=== PATIENT | male | born 1950 | race Caucasian/White ===

== ENCOUNTER → 2018-06-16 | Outpatient (CLI) | payer OTHER ==
[~2018-06-16] VITALS: Ht 180.3 cm; Wt 88.5 kg
[~2018-06-16] MED LIST: LIPITOR 20 MG T20 M1 PO; MOVE FREE JOIN1 EACH PO; TOPROL XL25 MG PO; TUMS PO
--- NOTE | 2018-06-18 12:10 | PATH ---
[facility] [address] [place] [address] PATHOLOGY RPT PROCEDURE Name: JERRY WETZEL Room #: REG JENNIFER Hurtado.#: [id number] ������������������ Admission: 06/16/18 ������������������ Date of : 46 Discharge: Report #: [id number] Path Case #: [id number] [facility] Accession Number: [id number] . 01 Material submitted: . PART A: ASCENDING COLON POLYP PART B: SPLENIC FLEXURE POLYP . 01 Clinical history: . History of adenomatous colon polyp Colon polyps, diverticulosis . 02 Diagnosis: A. Polyp, ascending colon polyp, endoscopic biopsy: - Tubular adenoma. - Negative for high grade dysplasia. . B. Polyp, splenic flexure polyp, endoscopic biopsy: - Tubular adenoma. - Negative for high grade dysplasia. . (IUV:mml; 06/17/2018) QLM/06/17/2018 . 02 Electronically signed: . Cris Granda MD, Pathologist NPI- [id number] . 01 Gross description: . A. The specimen is received in formalin, labeled "Jerry Wetzel, ascending colon polyp" and consists of 2 fragments of barrios-brown tissue measuring 0.3 x 0.1 cm and 0.5 x 0.3 x 0.2 cm. The larger fragment is inked and bisected. They are entirely submitted in A1. . B. The specimen is received in formalin, labeled "Jerry Wetzel, splenic flexure polyp" and consists of 2 fragments of barrios-brown tissue measuring 0.4 x 0.3 x 0.1 cm and 0.7 x 0.7 x 0.1 cm. They are entirely submitted in B1. (SDY; 06/16/2018) SYU/SYU . 02 Pathologist provided ICD-10: D12.2, D12.3 . 02 CPT . 502772, 090294 Specimen Comment: A courtesy [place] of [place] [address] PATHOLOGY RPT PROCEDURE Name: JERRY WETZEL Room #: REG [facility]#: [id number] ������������������ Admission: 06/16/18 ������������������ Date of : 46 Discharge: Report #: [id number] Path Case #: [id number] Specimen Comment: [phone], . Specimen Comment: Report sent to / DR LORENZO Specimen Comment: A duplicate report has been generated due to demographic updates. Performed at: [address] [facility], [place], [place] [id number] MD Ildefonso Laws MD Phone: [phone] Performed at: [address] [id number] MD Cris Granda MD Phone: [phone]
== END | disposition home or self-care (01) ==
LOC: GI 07:35
DX: Z12.11 Encounter for screening for malignant neoplasm of colon (principal); D12.2 Benign neoplasm of ascending colon; D12.3 Benign neoplasm of transverse colon; K57.30 Diverticulosis of large intestine without perforation or abscess without bleeding; K64.8 Other hemorrhoids; I10 Essential (primary) hypertension; E78.00 Pure hypercholesterolemia, unspecified; G47.30 Sleep apnea, unspecified; K21.9 Gastro-esophageal reflux disease without esophagitis; E78.5 Hyperlipidemia, unspecified; Z86.010 Personal history of colon polyps; Z90.49 Acquired absence of other specified parts of digestive tract; Z98.890 Other specified postprocedural states; Z95.0 Presence of cardiac pacemaker; Z79.899 Other long term (current) drug therapy
CPT/HCPCS: 62110; 62900